=== PATIENT | male | born 1975 | race American Indian/Alaskan Native ===

== ENCOUNTER 2016-06-01 20:03 | Emergency (ER) | payer OTHER ==
[2016-06-02] MEDS ORDERED: NORCO 5/325 PO ONE (04:58)
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
[2016-06-02 08:09] VITALS: BP 124/78
== END 2016-06-02 08:07 | disposition home or self-care (01) ==
LOC: ED 20:03
DX: M54.9 Dorsalgia, unspecified (principal); M54.2 Cervicalgia; W19.XXXA Unspecified fall, initial encounter
CPT/HCPCS: 72040; 72100